=== PATIENT | female | born 1955 | race Caucasian/White ===

== ENCOUNTER 2020-01-03 17:27 | Emergency (ER) | payer BC ==
--- NOTE | 2020-01-03 18:35 | EDM.PDOC ---
ED HPI GENERAL MEDICAL PROBLEM - General Chief Complaint: Lower Extremity Injury/Pain Stated Complaint: SWOLLEN AND PAIN IN LEFT KNEE Time Seen by Provider: 01/03/20 17:59 Source of Information: Reports: Patient, RN Notes Reviewed History Limitations: Reports: No Limitations - History of Present Illness INITIAL COMMENTS - FREE TEXT/NARRATIVE: Patient is a 64-year-old female who presents to the ED for evaluation of a left knee injury. Patient notes she was riding her horse earlier today, when the horse got bogged down in the mud, and she stepped off the horse. She states t hat her feet went about knee deep into the mud, and she thinks she may have twisted, and had immediate pain into her left knee after this. She also felt a pop. She is complaining of the knee "not feeling right". She feels somewhat unstable when walking on the knee, and cannot bear weight with much difficulty. She is not complaining of any numbness or tingling distal to the injury, she is not complaining of any pain that shoots up or down the leg. She did take 800 mg or Profen prior to coming to the ER. She does note that she has a history of osteoporosis, and did recently bust her left calcaneus this late summer. She believes this has healed since then. She was nonweightbearing for this. Other than the knee injury, she is complaining of no fevers or chills, cough/shortness of breath, nausea/vomiting/diarrhea. 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 - Related Data Allergies Allergy/AdvReac Type Severity Reaction Status Date / Time alendronate sodium Allergy Diarrhea Verified 01/03/20 17:48 [facility] Allergy Itching Uncoded 01/03/20 17:48 topamate Allergy Disorientat Uncoded 01/03/20 17:48 ion Home Meds: Home Meds Acetaminophen/HYDROcodone [Adolphus 325-5 MG] 1 tab PO Q6H PRN #15 tablet 01/03/20 [Rx] Levothyroxine Sodium [Unithroid] 75 mcg PO DAILY 01/03/20 [History] Rizatriptan Benzoate [Rizatriptan] 10 mg PO ASDIRECTED 01/03/20 [History] Past Medical History HEENT History: Reports: Impaired 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: Musculoskeletal History: Reports: Back Pain, Chronic, Osteoporosis Endocrine/Metabolic History: Reports: Hypothyroidism - Past Surgical History HEENT Surgical History: Reports: Eye Surgery, LASIK, Tonsillectomy Other HEENT Surgeries/Procedures: Lens implants Female Surgical History: Reports: Hysterectomy Social & Family History - Family History Family Medical History: Noncontributory - Tobacco Use Smoking Status *Q: Never Smoker - Caffeine Use Caffeine Use: Reports: Coffee - Recreational Drug Use Recreational Drug Use: No Review of Systems - Review of Systems Review Of Systems: Comprehensive ROS is negative, except as noted in HPI. ED EXAM, GENERAL - Physical Exam Exam: See Below Exam Limited By: No Limitations General Appearance: Alert, WD/WN, No Apparent Distress Respiratory/Chest: No Respiratory Distress, Lungs Clear, Normal Breath Sounds, No Accessory Muscle Use, Chest Non-Tender Cardiovascular: Normal Peripheral Pulses, Regular Rate, Rhythm, No Murmur Peripheral Pulses: 2+: Dorsalis Pedis (L), Dorsalis Pedis (R) Extremities: Normal Inspection, Normal Range of Motion, Normal Capillary Refill, Joint Swelling (slight swelling noted to left knee as compared to the right knee) Neurological: Alert, Oriented, Normal Cognition, No Motor/Sensory Deficits Psychiatric: Normal Affect, Normal Mood Skin Exam: Warm, Dry, Intact, Normal Color, No Rash Course - Vital Signs Last Recorded V/S: Last Vital Signs Temp 97.7 F 01/03/20 17:56 Pulse 89 01/03/20 17:56 Resp 16 01/03/20 17:56 BP 169/95 H 01/03/20 17:56 Pulse Ox 100 01/03/20 17:56 - Orders/Labs/Meds Orders: Active Orders 24 hr Category Date Time Status DME for Discharge [COMM] Routine Oth 01/03/20 18:37 Ordered - Re-Assessments/Exams Free Text/Narrative Re-Assessment/Exam: 01/03/20 18:24 Patient presents to the ED for the evaluation of her left knee injury. X-rays will be obtained to rule out bony injury in nature. Likely patient be sent home with a knee immobilizer and crutches, and a strict follow-up for orthopedics, she states she is from [place], and will be able to do this in [place]. She does know of research specialist for who she can talk with. She would likely benefit from an MRI. 01/03/20 18:37 Patient's knee x-ray demonstrates a large joint effusion. If internal derangement is suspected, MRI could then be considered. Again as stated above I do believe this would be her best course of management. I will relay this information to her. Departure - Departure Time of Disposition: 18:38 Disposition: Home, Self-Care 01 Condition: Good Clinical Impression: Left knee pain Qualifiers: Chronicity: acute Qualified Code(s): M25.562 - Pain in left knee - Discharge Information *PRESCRIPTION DRUG MONITORING PROGRAM REVIEWED*: No *COPY OF PRESCRIPTION DRUG MONITORING REPORT IN PATIENT KRYSTAL: No Prescriptions: Acetaminophen/HYDROcodone [Adolphus 325-5 MG] 1 tab PO Q6H PRN #15 tablet PRN Reason: Pain Instructions: Acute Knee Pain, Adult, [id number] Referrals: PCP,None [Primary Care Provider] - Forms: ED Department Discharge Additional Instructions: You have been evaluated in the ED for your left knee injury. Your x-ray demonstrated no acute bony injury, there is a rather large joint effusion, which means there is some swelling around the knee joint itself. I do highly recommend you follow-up with orthopedics in [place] when you get home, for MRI to evaluate for further soft tissue injury. Please use ice as tolerated to the affected area. You may elevate the affected area to provide further relief from swelling. You may take Tylenol 500 mg or ibuprofen 600mg q6 hrs for pain relief. Please do so until you have a tolerable level of pain with activity. Do not exceed 4000mg Tylenol, Do not exceed 3200mg ibuprofen in a 24 hour time period. You were given a prescription for a strong pain medication, hydrocodone/acetaminophen 5/325 mg, please take 1 tab every 6 hours as needed for pain not relieved by Tylenol or ibuprofen alone. Please note this medication does contain Tylenol in it, so do not take more than 4000 mg in a 24- hour time span. These medications can be addictive, so please take as few as possible to achieve adequate pain control. These meds can also be quite constipating, recommend that you increase your oral fluid intake and take a stool softener like MiraLAX while taking these medications. Do not drive while taking this medication. Please call Ortho for follow-up and further evaluation; Please call and set up an appointment as soon as possible for further management, as soon as you get home. Please return to ED if your symptoms should change or worsen. Sepsis Event Note (ED) - Evaluation Sepsis Screening Result: No Definite Risk - Focused Exam Vital Signs: Vital Signs Temp Pulse Resp BP Pulse Ox 01/03/20 17:56 97.7 F 89 16 169/95 H 100 - My Orders Last 24 Hours: My Active Orders 01/03/20 18:37 DME for Discharge [COMM] Routine - Assessment/Plan Last 24 Hours: My Active Orders 01/03/20 18:37 DME for Discharge [COMM] Routine
--- NOTE | 2020-01-03 18:36 | CR ---
Left knee: 4 views of the left knee were obtained. Large joint effusion is seen. Medial and lateral joint compartments are maintained in height. No acute fracture or other bony abnormality is appreciated. Impression: 1. Large joint effusion. If internal derangement is suspected, MRI could then be considered. 2. No additional abnormality is appreciated on left knee exam. Diagnostic code #3 This report was dictated in MDT
== END 2020-01-03 19:10 | disposition home or self-care (01) ==
LOC: JD.ED 17:27
DX: M25.562 Pain in left knee (principal); E03.9 Hypothyroidism, unspecified; Z79.899 Other long term (current) drug therapy; Z88.8 Allergy status to other drugs, medicaments and biological substances
CPT/HCPCS: 73564-26-LT; 73564-LT; 99283; 99283-25